=== PATIENT | female | born 1980 | race Two or more races ===

== ENCOUNTER → 2022-07-18 13:35 | Outpatient (CLI) | payer OTHER | END | disposition home or self-care (01) | LOC: LAB 09:19 | DX: N30.00 Acute cystitis without hematuria (principal); R73.9 Hyperglycemia, unspecified; N92.1 Excessive and frequent menstruation with irregular cycle; E01.8 Other iodine-deficiency related thyroid disorders and allied conditions; E75.5 Other lipid storage disorders ==

== ENCOUNTER 2022-07-18 15:18 | Outpatient (CLI) | payer OTHER | END 2022-07-18 15:21 | disposition home or self-care (01) | LOC: MAMO-SONO 15:18 | DX: Z12.31 Encounter for screening mammogram for malignant neoplasm of breast (principal); N64.59 Other signs and symptoms in breast; R10.2 Pelvic and perineal pain ==